=== PATIENT | female | born 1960 | race Caucasian/White ===

== ENCOUNTER 2016-11-13 13:57 | Inpatient (IN) | payer MEDICARE ==
--- NOTE | ~2016-11-13 | CR6 ---
[facility] A Service of [facility] & [facility] RADIOLOGY TEXT RESULTS PATIENT: SHEN WILLIAM LOCATION: [facility] 334-01 : 58 UNIT #: [id number] AGE: [address]: Sal Dye III, MD SEX: F ORDER DR: [id number] [id number] [facility]. [place], [place] [address] [id number] I MR#: [id number] Acc #: [id number] NAME: SHEN WILLIAM : 1960 SEX: F STUDY DATE/TIME: 11/15/2016 11:28 [facility]: [facility] STUDY DESCRIPTION: CR Abdomen Portable Sng View Attending Physician: Sal Dye III, M.D. Ordering Physician: Sal Dye III, M.D. Primary Care Physician: Mary Barrientos M.D. MEDICAL IMAGING REPORT This report is preliminary unless electronic signature is present EXAM AP of the abdomen. HISTORY 56-year-old female with abdominal pain this morning. COMPARISON STUDIES Comparison with yesterday. FINDINGS Overall there has been no real significant change in the dilated loops of small bowel. Previous vertebral augmentations. IMPRESSION No significant change in the dilated loops of small bowel. Dictated by... Rick Vasquez M.D. THIS IS AN ELECTRONICALLY VERIFIED REPORT Rick Vasquez M.D. at 11/15/2016 4:41 PM MERLINE/cherri TD: 11/15/2016 14:30 JOB #: [id number] MEDICAL IMAGING REPORT Page 1 of 1 COPY
--- NOTE | ~2016-11-13 | CR4 ---
[facility] A Service of [facility] RADIOLOGY TEXT RESULTS PATIENT: SHEN WILLIAM LOCATION: [facility] 334- : 58 UNIT #: [id number] AGE: [address]: Sal Dye III, MD SEX: F ORDER DR: [id number] [facility] [address] [facility]. [place], [place] [address] [id number] I MR#: [id number] Acc #: [id number] NAME: SHEN WILLIAM : 1960 SEX: F STUDY DATE/TIME: 11/18/2016 12:55 UNIT: A U ROOM: [facility] STUDY DESCRIPTION: CR Abdomen Flat Upright or Dec Attending Physician: Sal Dye III, M.D. Ordering Physician: Sal Dye III, M.D. Primary Care Physician: Mary Barrientos M.D. MEDICAL IMAGING REPORT This report is preliminary unless electronic signature is present EXAM Flat and upright abdomen HISTORY Abdominal pain nausea and vomiting for the past 5 days. TECHNIQUE Single view of the abdomen was obtained and compared to 11/15/2016 FINDINGS Ingested oral contrast is seen down to the rectum. The small bowel pattern is normal. Distended small bowel loops in the mid abdomen seen on the previous examination have improved. No free air is seen in the upright view. IMPRESSION Improvement in the small bowel distension since the previous examination. Ingested oral contrast is into the rectosigmoid. No evidence of free air. Dictated by... Brock Lara M.D. THIS IS AN ELECTRONICALLY VERIFIED REPORT Brock Lara M.D. at 11/18/2016 6:02 PM MARIONF/woo TD: 11/18/2016 15:02 JOB #: [id number] MEDICAL IMAGING REPORT Page 1 of 1 COPY
--- NOTE | ~2016-11-13 | CR4 ---
[facility] A Service of [facility] RADIOLOGY TEXT RESULTS PATIENT: SHEN WILLIAM LOCATION: [facility] 334-01 : 58 UNIT #: [id number] AGE: [address]: Sal Dye III, MD SEX: F ORDER DR: [id number] [facility] [address] [facility]. [place], [place] [address] [id number] I MR#: [id number] Acc #: [id number] NAME: SHEN WILLIAM : 1960 SEX: F STUDY DATE/TIME: 11/14/2016 13:22 UNIT: C2A ROOM: 226 STUDY DESCRIPTION: CR Abdomen Flat Upright or Dec Attending Physician: Sal Dye III, M.D. Ordering Physician: Sal Dye III, M.D. Primary Care Physician: Mary Barrientos M.D. MEDICAL IMAGING REPORT This report is preliminary unless electronic signature is present EXAM Abdomen flat and upright. HISTORY Abdomen pain for 5 days. FINDINGS Flat and upright views of the abdomen demonstrate dilatation of gas-filled small bowel in the abdomen and upper pelvis. The colon has apparently been resected, as noted on recent CT. The small bowel measures up to nearly 7 cm in diameter in the right upper quadrant, and 4.4 cm in the left lower quadrant. Findings suggest generalized ileus or distal small bowel obstruction. The degree of bowel dilatation is similar to CT yesterday. Chronic compression fractures and vertebral plasties at T12, L1 and L2. IMPRESSION Dilatation of small bowel throughout the abdomen and upper pelvis is similar to findings on CT yesterday. The patient is apparently status post colectomy and findings could be due to a small bowel ileus or distal small bowel obstruction. No free air. Chronic compression fractures and vertebral plasties at T12, L1 and L2. 1. Dictated by... Jerry Babb M.D. THIS IS AN ELECTRONICALLY VERIFIED REPORT Jerry Babb M.D. at 11/15/2016 3:02 PM CARLA/светлана TD: 11/15/2016 08:04 JOB #: [id number] [facility] A Service of [facility] RADIOLOGY TEXT RESULTS PATIENT: SHEN WILLIAM LOCATION: [facility] 334-01 : 58 UNIT #: [id number] AGE: [address]: Sal Dye III, MD SEX: F ORDER DR: MEDICAL IMAGING REPORT Page 1 of 1 COPY
--- NOTE | ~2016-11-13 | CO ---
Unit #: [id number] #: [id number] Patient: SHEN WILLIAM [id number] [address] [place], [place] [address] [id number] I MR#: [id number] NAME: SHEN WILLIAM ROOM: 226 Age: 55 Sex: F Admission Date: 11/13/2016 : 1960 Attending Physician: Sal Dye III, M.D. Primary Care Physician: Mary Barrientos M.D. CONSULTATION REPORT REASON FOR CONSULTATION Chronic pain and anxiety. HISTORY OF PRESENT ILLNESS The patient is a 55-year-old female with history of chronic pain and coronary artery disease and presented to the emergency room with abdominal pain. The patient was found to have a small-bowel obstruction and is being admitted to the Surgical Service and Medicine consult has been placed for the management of chronic pain and anxiety. The patient had reanastomosis and reversal of the ileostomy back in 2013 and the patient stated that the patient's last bowel movement was earlier at 3:30 in the morning and has not passed any gas. The patient was also found to have a hypokalemia with 2.6 and the patient is being admitted for the bowel rest and hypokalemia. PAST MEDICAL HISTORY History of depression, osteoporosis, chronic back pain, small-bowel obstruction, GERD, ventral hernia repair and revision. PAST SURGICAL HISTORY Cholecystectomy, kyphoplasty, cataract extraction, back surgery, hysterectomy. ALLERGIES She is allergic to morphine and nonsteroidal antiinflammatory drugs. HOME MEDICATIONS She is on Abilify, Elavil, aspirin, Coreg, Bentyl, Fosamax, Flonase, Florastor, Klonopin, Lasix as needed, Lexapro, methadone, and oxycodone. FAMILY HISTORY Positive for hypertension, diabetes. SOCIAL HISTORY The patient lives with her family. She smokes 2 packs per day of tobacco and does not drink alcohol. REVIEW OF SYSTEMS 14-point review of systems was performed and only pertinent positive findings are described. Remaining are negative. PHYSICAL EXAMINATION GENERAL: The patient is lying on bed, not in acute distress. Unit #: [id number] #: [id number] Patient: SHEN WILLIAM VITAL SIGNS: Temperature 97, pulse 79, respiratory rate 36, blood pressure 156/81, saturating 95% on room air. HEENT: Head, atraumatic, normocephalic. Pupils are equal, round, and reactive to light and accommodation. Dry mucous membrane. NECK: Supple. No JVD. LUNGS: Clear to auscultation bilaterally. No rhonchi. No wheezing. HEART: Regular rate and rhythm. ABDOMEN: Soft. Positive bowel sounds. Positive for abdominal pain. Old healed surgical scar. EXTREMITIES: No cyanosis. No clubbing. NEUROLOGIC: Alert, awake, and oriented. No gross focal motor deficits. DIAGNOSTIC STUDIES LABORATORY RESULTS: Glucose 128, BUN 13, creatinine 0.8, sodium 139, potassium 2.6, chloride 98, bicarb 31, calcium 8.6, total protein 7.2, albumin 3.3, total bilirubin 0.9, AST 27, ALT 14, alkaline phosphatase 70, amylase 10, lipase less than 10. WBC 7.8, hemoglobin 12.2, hematocrit 36.9, platelets 206, neutrophils 73.6%. UA shows trace leukocyte esterase and urobilinogen 0.2. IMAGING STUDIES: CT of the abdomen shows small-bowel obstruction. ASSESSMENT 1. Small-bowel obstruction. 2. Hypokalemia. 3. Chronic pain. 4. Compression fracture. PLAN To continue with surgical management with bowel rest and IV fluids and continue with pain medication with Dilaudid, did well, the patient has been n.p.o. and replace with potassium per protocol and further recommendations will follow as more lab results are available. Dictated by... Segundo Michaels/stefan TD: 11/13/2016 23:34 JOB #: [id number] CONSULTATION REPORT Page 1 of 1 X X CONSULTATION REPORT
--- NOTE | ~2016-11-13 | CR63 ---
[facility] A Service of [facility] & [facility] RADIOLOGY TEXT RESULTS PATIENT: SHEN WILLIAM LOCATION: [facility] 334-01 : 58 UNIT #: [id number] AGE: [address]: Sal Dye III, MD SEX: F ORDER DR: [id number] [facility] [address] [facility]. [place], [place] [address] [id number] I MR#: [id number] Acc #: [id number] NAME: SHEN WILLIAM : 1960 SEX: F STUDY DATE/TIME: 11/14/2016 13:22 UNIT: C2A ROOM: 226 STUDY DESCRIPTION: CR Chest 2 View Attending Physician: Sal Dye III, M.D. Ordering Physician: Arabella Munoz M.D. Primary Care Physician: Mary Barrientos M.D. MEDICAL IMAGING REPORT This report is preliminary unless electronic signature is present EXAM PA and lateral chest HISTORY Weakness and dyspnea for 5 days. FINDINGS 2 views of the chest demonstrate moderate chronic anterior elevation of the right hemidiaphragm with colonic interposition over the anterior margin of the liver, similar to chest x-ray 06/12/2015. Lower lung volumes on the current study. There is a new moderate bibasilar linear atelectasis or scarring and small amount of fluid or pleural thickening in both bases. Moderate thoracolumbar junction kyphosis with multiple chronic compression fractures of lower thoracic and upper lumbar vertebra and associated vertebroplasties. IMPRESSION 1. No evidence of active disease in the lungs. 2. Moderate bibasilar linear atelectasis or scarring. 3. Small amount of fluid or pleural thickening in both bases. 4. Low lung volumes with moderate elevation of the anterior right hemidiaphragm. Dictated by... Jerry Babb M.D. THIS IS AN ELECTRONICALLY VERIFIED REPORT Jerry Babb M.D. at 11/15/2016 3:01 PM CARLA/светлана TD: 11/15/2016 07:44 JOB #: [id number] [facility] A Service of [facility] & [facility] RADIOLOGY TEXT RESULTS PATIENT: SHEN WILLIAM LOCATION: A 334-01 : 58 UNIT #: [id number] AGE: [address]: Sal Dye III, MD SEX: F ORDER DR: MEDICAL IMAGING REPORT Page 1 of 1 COPY
--- NOTE | ~2016-11-13 | CR269 ---
[facility] A Service of [facility] & [facility] RADIOLOGY TEXT RESULTS PATIENT: SHEN WILLIAM LOCATION: [facility] 334-01 : 58 UNIT #: [id number] AGE: [address]: Sal Dye III, MD SEX: F ORDER DR: [id number] [id number] [facility]. [place], [place] [address] [id number] I MR#: [id number] Acc #: [id number] NAME: SHEN WILLIAM : 1960 SEX: F STUDY DATE/TIME: 11/16/2016 14:21 UNIT: C3A PCU ROOM: [facility] STUDY DESCRIPTION: CR Upper GI and SBFT Attending Physician: Sal Dye III, M.D. Ordering Physician: Noble Jensen Jr., M.D. Primary Care Physician: Mary Barrientos M.D. MEDICAL IMAGING REPORT This report is preliminary unless electronic signature is present EXAM Upper GI and small bowel follow-through INDICATIONS Generalized abdominal pain for the past 4 days. Concern for small bowel obstruction. Patient has a history of partial colectomy 1978. PROCEDURE Barium contrast was administered via the patient's NG tube. Spot images of the stomach were obtained. Serial abdominal radiographs were obtained. Comparison CT from 11/13/2016 FINDINGS A total of 7 fluoroscopic images were obtained. Fluoro time 1.2 minutes. Limited evaluation of the stomach given patient mobility issues. No definite rugal fold thickening or mass is seen. Small bowel loops are diffusely prominent. There is a fairly long segment of small bowel in the mid to lower abdomen which shows significant fold thickening. This appearance, persists on multiple images. There is slow transit of contrast through the small bowel. At the 5-hour and 40-minute leodan contrast has still not progressed throughout the entire small bowel. A followup abdominal radiograph at 21 hours and 30 minutes shows contrast in the rectum. IMPRESSION 1. Study was difficult given mobility issues and presence of a NG tube. No definite abnormality in the stomach. 2. Diffuse prominence of the small bowel with slow transit of contrast throughout the small bowel. There is no evidence for high-grade obstruction as contrast is seen in the rectum at 21 hours and 30 minutes. [facility] A Service of [facility] & [facility] RADIOLOGY TEXT RESULTS PATIENT: SHEN WILLIAM LOCATION: [facility] 334-01 : 58 UNIT #: [id number] AGE: [address]: Sal Dye III, MD SEX: F ORDER DR: 3. Abnormal segment of bowel in the gyc-ul-gdlsb abdomen shows significant wall thickening. This is a nonspecific finding. It could represent bowel edema, inflammatory change or infiltrative process. This segment is not clearly seen on the CT. Dictated by... Bob Singleton M.D. THIS IS AN ELECTRONICALLY VERIFIED REPORT Bob Singleton M.D. at 11/19/2016 4:51 PM Yeyo TD: 11/17/2016 10:32 JOB #: [id number] MEDICAL IMAGING REPORT Page 1 of 1 COPY
--- NOTE | ~2016-11-13 | MR113 ---
[facility] A Service of [facility] & [facility] RADIOLOGY TEXT RESULTS PATIENT: SHEN WILLIAM LOCATION: C2[facility] 226-01 : 58 UNIT #: [id number] AGE: [address]: Sal Dye III, MD SEX: F ORDER DR: [id number] [facility] [address] [facility]. [place], [place] [address] [id number] I MR#: [id number] Acc #: [id number] NAME: SHEN WILLIAM : 1960 SEX: F STUDY DATE/TIME: 11/14/2016 15:04 UNIT: [facility] ROOM: 226 STUDY DESCRIPTION: MR Lumbar Wo Contrast Attending Physician: Sal Dye III, M.D. Ordering Physician: Arabella Munoz M.D. Primary Care Physician: Mary Barrientos M.D. MRI CENTER REPORT This report is preliminary unless electronic signature is present. EXAM MRI of the lumbar spine without contrast HISTORY Low back injury 4 weeks ago. Severe back pain. Evaluate for compression fracture. COMPARISON CT abdomen and pelvis 11/13/2016. FINDINGS Multiplanar, multiecho imaging was performed of the lumbar spine utilizing a high-field magnet and dedicated protocol. Examination demonstrates mild accentuation of the kyphosis at the thoracolumbar junction. This is most likely accentuated due to the patient's multiple thoracic compression fractures T12, L1 and L2. The patient has undergone previous kyphoplasty at these levels. There is diffuse marrow edema throughout the L5 vertebral body compatible with an acute or subacute compression fracture. There is estimated approximately 20% loss of the superior vertebral body height. No retropulsed fragment. Normal termination of the conus. Prominent Schmorl's node or interosseous disc herniation seen along the inferior aspect of the L4 vertebral body. At L3-4, patient does demonstrate moderate central canal stenosis and bilateral foraminal stenosis due to circumferential disc bulging and facet arthropathy. Bilateral foraminal stenosis also noted at L4-5 left greater than right. At L5-S1, there is left L5-S1 neural foraminal narrowing due to asymmetric disc bulge. IMPRESSION 1. Marrow edema within the L5 vertebral body which would support an acute or subacute compression fracture of L5 with no more than 20% loss of the [facility] A Service of [facility] RADIOLOGY TEXT RESULTS PATIENT: SHEN WILLIAM LOCATION: C2A 226-01 : 58 UNIT #: [id number] AGE: [address]: Sal Dye III, MD SEX: F ORDER DR: superior vertebral body height. No retropulsed fragment. 2. Status post kyphoplasty T12, L1 and L2 with accentuation of the thoracic kyphosis at this level. 3. Multilevel spinal and foraminal stenosis as detailed above. Dictated by... Dayami Vasquez M.D. THIS IS AN ELECTRONICALLY VERIFIED REPORT Dayami Vasquez M.D. at 11/15/2016 10:05 AM SALVATORE/rajinder TD: 11/15/2016 08:47 JOB #: [id number] MRI CENTER REPORT Page 1 of 1 COPY
--- NOTE | ~2016-11-13 | CT2 ---
[facility] A Service of [facility] & [facility] RADIOLOGY TEXT RESULTS PATIENT: SHEN WILLIAM LOCATION: [facility] 226-01 : 59 UNIT #: [id number] AGE: [address]: Sal Dye III, MD SEX: F ORDER DR: [id number] [facility] [address] [facility]. [place], [place] [address] [id number] I MR#: [id number] Acc #: [id number] NAME: SHEN WILLIAM : 1960 SEX: F STUDY DATE/TIME: 11/13/2016 16:28 UNIT: CEDOF ROOM: 96797 STUDY DESCRIPTION: CT Abd and Pelv W Cont Attending Physician: Sal Dye III, M.D. Ordering Physician: Ed Dino Wetzel M.D. Primary Care Physician: Mary Barrientos M.D. MEDICAL IMAGING REPORT This report is preliminary unless electronic signature is present EXAM CT abdomen and pelvis with contrast. HISTORY Umbilical area abdominal pain since this morning. History of Crohn disease. The patient has had a subtotal colectomy, ileostomy, hysterectomy, appendectomy, and a left oophorectomy and cholecystectomy. COMPARISON CT abdomen and pelvis, 12/10/2015. TECHNIQUE Axial images performed through the abdomen and pelvis following IV and oral contrast. Multiplanar reconstructed images reviewed at a workstation. This CT exam was performed with one or more of the following radiation dose reduction techniques: automatic exposure control, adjustment of mA and/or kV according to patient size, and iterative reconstruction. FINDINGS ABDOMEN: Lung bases unremarkable except for left basilar atelectasis and possible early pneumonitis. Liver and spleen unremarkable. Trace amount of ascites. Multiple dilated loops of small bowel concerning for developing small bowel obstruction with multifocal air-fluid levels. Patient has undergone a subtotal colectomy. No focal inflammatory process seen within the abdomen. Liver, spleen, kidneys, and adrenal glands are unremarkable. Pancreatic atrophy. Mild aortic and iliac atherosclerotic disease. PELVIS: Bladder is mildly distended. Uterus absent. Multiple thoracic and lumbar compression fractures. There is an apparent new L5 compression fracture with about 20% loss of the superior endplate height and diffuse sclerosis. This is new from the November 2015 CT scan. [facility] A Service of [facility] RADIOLOGY TEXT RESULTS PATIENT: SHEN WILLIAM LOCATION: C2A 226-01 : 58 UNIT #: [id number] AGE: [address]: Sal Dye III, MD SEX: F ORDER DR: Focal defect and bulge in the left lower abdominal wall, most likely related to multiple surgeries. Induration of the overlying soft tissues may represent areas of fat necrosis or chronic inflammation. This does not appear significantly changed from prior studies. No focal incarceration of bowel is identified to suggest cause for the patient's possible obstruction. IMPRESSION 1. Abnormal bowel gas pattern with multiple dilated loops of small bowel with multiple air-fluid levels. This appears to represent a proximal to mid small bowel obstruction, possibly on the basis of adhesions given the patient's numerous surgeries. 2. Patchy parenchymal opacity left lung base, probably represents subsegmental atelectasis though early infiltrate not excluded. 3. Patient demonstrates multiple thoracic and lumbar compression fractures but there is a new superior endplate compression fracture of L5 which is new when compared to the patient's CT scan of November 2015. 4. Not mentioned above, the patient does demonstrate moderate to severe spinal stenosis at L3-4. 5. Continued defect along the left lower anterior abdominal wall, most likely related to the patient's multiple surgeries. This does not appear significantly changed from patient's prior exams and does not appear to represent a site or source of the patient's obstruction as there is no focal incarceration. Dictated by... Dayami Vasquez M.D. THIS IS AN ELECTRONICALLY VERIFIED REPORT Dayami Vasquez M.D. at 11/14/2016 10:52 PM SALVATORE/cherri TD: 11/14/2016 07:51 JOB #: [id number] MEDICAL IMAGING REPORT Page 1 of 1 COPY
--- NOTE | ~2016-11-13 | DS ---
Unit #: [id number] #: [id number] Patient: SHEN BARR [id number] [address] [place], [place] [address] [id number] I MR#: [id number] NAME: SHEN BARR ROOM: 334 Age: 56 Sex: F Admission Date: 11/13/2016 : 1960 Discharge Date: Attending Physician: Sal Dye III, M.D. Primary Care Physician: Mary Barrientos M.D. DISCHARGE SUMMARY HISTORY AND HOSPITAL COURSE Ms. Barr is a 55-year-old female with history of chronic pain syndrome from the spinal issues, who has also had multiple abdominal surgeries. She presented to the emergency room with complaints of bloating and diffuse abdominal pain. Initial x-rays were concerning for partial small bowel obstruction. She was admitted to the hospital and her electrolytes were corrected and she was hydrated and treated conservatively. A small bowel follow-through showed no obstruction but very slow transit. She was also seen by the [facility] service because of other medical issues. An MRI of the lumbar spine was ordered. There was question of an acute or subacute compression fracture. She has had previous kyphoplasties at T12, L1, and L2, and this compression fracture is thought to be at L5. Slowly, she regained bowel function and was able to be advanced on a diet. I believe she probably has some slow transit as result of her chronic pain medications and she may have an exacerbation due to her acute or subacute compression fracture. However on evaluation, there was no acute intervention for the compression fractures was needed. She is to follow up with her pain management people. At this time, her medications for her anxiety were altered by [facility] and we will continue those at home. She is tolerating a regular diet and having regular bowel function at this time and her abdomen is benign to exam. She will be discharged home with instruction to go diet and activity as tolerated. Continue the medications per the reconciliation sheet. Followup with pain management. Dictated by... Segundo Montejo/stefan TD: 11/20/2016 07:27 JOB #: [id number] DISCHARGE SUMMARY Page 1 of 1 X Brock Barriga MD DISCHARGE SUMMARY
--- NOTE | ~2016-11-13 | A ---
[facility] Nutrition Therapy DATE: 11/18/16 Patient: SHEN WILLIAM Physician: ÁNGELA Address: [address] [facility] Room/Bed: [address] [place] [address], Zip: [place] [address] Admit Date: 11/13/16 Date of : 58 Height: 5 5 Weight: 184 83.8 NUTRITIONAL ASSESSMENT: REASON: NPO/ clear liquid diet x 5 days 55 yo female admitted for abdominal pain, partial SBO PMH: History of bowel obstruction with exploratory laparatomy, depression, chronic back pain, GERD, hypothyroid, ileostomy, ileostomy s/p ileostomy reversal, hernia repair, cholecystectomy, osteoporosis Anthropometrics: Ht: 65" Wt: 85.6 kg BMI: 31.4 Labs: Na+ 131 BUN <5 Ca++ 7.6 Accuchecks 81-114 Meds: Protonix, synthroid, furosemide, levaquin (IV), novolog, zofran, MgSO4, KCl I/O & Bowel function: 4065/10, last BM 11/18 Skin Integrity: Open wounds mid back/ right upper back Rash to back Scabbed area- right upper back/ LLE Edema: None noted Diet: Clear liquid Assessment: Chart reviewed, events noted. RD spoke with the pt at bedside. Pt reports that her last intake of solid food was last Tuesday evening the , which indicates 6 days without adequate nutrient intake. Pt has been either NPO or on clear liquids since admission due to partial SBO. Pt's NGT has been removed, and the pt denies having any n/v at this time. Pt is reportedly tolerate clear liquids, and is agreeable to Ensure clear TID. Pt denies having any weight loss recently, besides any she may have had since Tuesday. Please see recommendations below. Dx: Inadequate oral intake RT partial SBO AEB pt NPO or on clear liquid diet since admission, pt reports no intake of solid food for 6 days. Intervention: 1. Clear liquid diet 2. Advance diet as tolerated per MD orders Monitoring, Evaluation and Goals: 1. Oral intake; tolerate >50-75% of meals and supplements [facility] Nutrition Therapy DATE: 11/18/16 Patient: SHEN WILLIAM Physician: ÁNGELA Address: [address] [facility] Room/Bed: [address] [place] [address], Zip: [place] [address] Admit Date: 11/13/16 Date of : 58 Height: 5 5 Weight: 184 83.8 2. Labs; WNL 3. Weight; prevent unintentional weight loss 4. Skin; promote healing. 5. GI; promote regular GI function Recommendations: 1. Ensure clear (mixed conte) TID for supplemental nutrition while the pt remains on a clear liquid diet. 2. Once medically feasible, advance the pt to a low fiber diet as tolerated per surgical team discretion. Gradually add fiberous foods back into the diet as tolerated. 3. Appreciate staff encouraging adequate intake as needed. 4. If the pt's diet does not advance, may consider alternative nutrition support. RD to follow. Pt is at moderate nutritional risk. Respectfully, SIVAKUMAR RODRIGUEZ RD, LD [facility] Psychiatric cc: client file
--- NOTE | ~2016-11-13 | CR72 ---
[facility] A Service of [facility] RADIOLOGY TEXT RESULTS PATIENT: HSEN WILLIAM LOCATION: [facility] [id number] : 58 UNIT #: [id number] AGE: [address]: Sal Dye III, MD SEX: F ORDER DR: [id number] [place], [place] [address] [id number] MR#: [id number] Acc #: [id number] NAME: SHEN WILLIAM : 1960 SEX: F STUDY DATE/TIME: 11/15/2016 11:26 UNIT: [address] ROOM: [facility] STUDY DESCRIPTION: CR Chest Single View Portable Attending Physician: Sal Dye III, M.D. Ordering Physician: Sal Dye III, M.D. Primary Care Physician: Mary Barrientos M.D. MEDICAL IMAGING REPORT This report is preliminary unless electronic signature is present EXAM Portable chest INDICATION 56-year-old female with shortness of breath since this morning. COMPARISON Yesterday FINDINGS Low volume inspiration. Stable atelectasis left base. No new infiltrates. Heart size stable. IMPRESSION No significant change in the appearance of the chest. Dictated by... Rick Vasquez M.D. THIS IS AN ELECTRONICALLY VERIFIED REPORT Rick Vasquez M.D. at 11/15/2016 4:41 PM MERLINE/aurelio TD: 11/15/2016 14:08 JOB #: [id number] MEDICAL IMAGING REPORT Page 1 of 1 COPY
--- NOTE | ~2016-11-13 | HP ---
Unit #: [id number] #: [id number] Patient: SHEN WILLIAM [id number] [address] [place], [place] [address] [id number] MR#: [id number] NAME: SHEN WILLIAM ROOM: 226 Age: 55 Sex: F Admission Date: 11/13/2016 : 1960 Attending Physician: Sal Dye III, M.D. Primary Care Physician: Mary Barrientos M.D. HISTORY AND PHYSICAL DATE OF EVALUATION 11/14/2016 CHIEF COMPLAINT Partial small bowel obstruction. HISTORY OF PRESENT ILLNESS This is a 55-year-old lady who has had a 24-hour history of diffuse abdominal pain, some bloating, and she reports that her last bowel movement was at 3:30 yesterday morning. She normally has multiple bowel movements throughout the day. She denies any flatus over the last 24 hours. She does say that she feels better this morning. She denies any ill contacts or any episodes of food poisoning. She has had similar episodes of bowel obstructions in the past. She reports that this one is not nearly as severe as the last one that required an exploratory laparotomy. PAST MEDICAL HISTORY Significant for: 1. Depression. 2. Chronic pain due to back pain and radiculopathy. 3. She also has a history of a myocardial infarction after an exploratory laparotomy. 4. Elevated cholesterol level. 5. History of reflux. 6. Hypothyroidism. PAST SURGICAL HISTORY She has had exploratory laparotomy, ileostomy for unknown reason. She then had to have reversal of the ileostomy. She has also had diagnostic laparoscopy at this institution. She has also undergone prior complex ventral hernia repairs with removal of mesh. She has also had an open cholecystectomy and some gynecological procedures. Additionally in terms of her back, she has had a diskectomy as well as a kyphoplasty. ALLERGIES Morphine and non-steroidals. Please see medication reconciliation list for the medications. SOCIAL HISTORY She does smoke. She denies any alcohol use. Unit #: [id number] #: [id number] Patient: SHEN WILLIAM FAMILY HISTORY Negative for any abdominal cancers. REVIEW OF SYSTEMS Negative for GI bleed, and she has had no weight loss and no fevers, and is otherwise as above. PHYSICAL EXAMINATION VITAL SIGNS: Temperature is 97, heart rate is 79, respiratory rate was 36 on admission but she is now breathing comfortably, blood pressure is 156/81. GENERAL: She is in no acute distress. HEENT EXAM: Pupils are equal and reactive to light and accommodation. Extraocular muscles are intact. NECK: Without masses or bruits. LUNGS: Equal breath sounds bilaterally with equal air exchange. CARDIAC EXAM: Shows regular rate and rhythm without murmur. ABDOMEN: Soft, non-distended and there is no focal tenderness at this point although she reports that she just had a pain shot. She has multiple scars but there is no appreciable hernias or masses. EXTREMITIES: Without edema or cyanosis. NEUROLOGIC EXAM: She is alert and oriented. There is no focal deficits. DIAGNOSTIC STUDIES LABORATORY: Potassium is 2.6, white count 7.8, hemoglobin is 12.2. IMAGING: CT scan, voice clip, shows dilated small bowel loops with air gas levels but no transition point. OVERALL IMPRESSION This is a 55-year-old lady, who has a partial small bowel obstruction likely secondary to adhesions. She seems to be clinically improving with nonoperative management with IV fluids, we will repeat an interval plain films later today to make sure that the bowel gas pattern is improving. At this point I will hold off on NG tube since she is not having any nausea or vomiting. Additionally, she has hypokalemia and she is on a potassium protocol. I have asked the hospitalist to see the patient to manage her chronic pain and anxiety. Dictated by Sal Dye III, M.D. VCL/kelvin TD: 11/14/2016 15:12 JOB #: [id number] HISTORY AND PHYSICAL Page 1 of 1 X Sal Dye III, MD HISTORY AND PHYSICAL
--- NOTE | ~2016-11-13 | EKG ---
PATIENT: SHEN WILLIAM UNIT #: [id number] Ventricular Rate: 88 BPM Atrial Rate: 88 BPM P-R Interval: 150 ms QRS Duration: 78 ms Q-T Interval: 402 ms QTC Calculation(Bezet): 486 ms P [place]: 42 degrees Calculated R [place]: -20 degrees Calculated T [place]: 13 degrees Diagnosis Line: Normal sinus rhythm Diagnosis Line: Low voltage QRS Diagnosis Line: Inferior infarct , age undetermined Diagnosis Line: Poor R wave progression questionable lead position Diagnosis Line: or body habitus Diagnosis Line: Abnormal ECG Diagnosis Line: When compared with ECG of 20-FEB-2016 11:32, Diagnosis Line: No significant change was found Diagnosis Line: Confirmed by KRISHNA PARKER MD ([id number]) on 11/15/2016 Diagnosis Line: 11:04:42 PM INTERPRETING MD: KEITH PHILIPPE
--- NOTE | ~2016-11-13 | CO ---
Unit #: [id number] #: [id number] Patient: SHEN WILLIAM [id number] [address] [address] [id number] MR#: [id number] NAME: SHEN WILLIAM ROOM: 226 Age: 56 Sex: F Admission Date: 11/13/2016 : 1960 Attending Physician: Sal Dye III, M.D. Primary Care Physician: Mary Barrientos M.D. Consultation Date: 11/15/2016 CONSULTATION REPORT REQUESTING PHYSICIAN Dr. Munoz. HISTORY OF PRESENT ILLNESS The patient does not recount injuring her back. She does have osteoporosis and has had kyphoplasties in the past. She is admitted with a small bowel obstruction and is due for surgery today. PAST MEDICAL HISTORY As per chart. She suffers with depression. MEDICATIONS 1. Synthroid. 2. Levothyroxine. 3. Furosemide. 4. Pantoprazole. 5. Potassium. 6. Tizanidine. ALLERGIES Morphine. PAST SURGICAL HISTORY 1. Microdiskectomy. 2. Kyphoplasty. 3. Lumbar diskectomy. 4. Cholecystectomy. FAMILY HISTORY Noncontributory. REVIEW OF SYSTEMS A 14-point review of systems is otherwise negative. DIAGNOSTIC STUDIES IMAGING: MRI reveals changes consistent with T12, L1, and L2 kyphoplasties and what appears to be degenerative disk disease throughout the lumbar spine and acute to subacute fracture of L5. CLINICAL IMPRESSION L5 compression fracture. RECOMMENDATIONS The patient has a small bowel obstruction and is due for surgery today. Unit #: [id number] #: [id number] Patient: SHEN WILLIAM This obviates kyphoplasty as the patient would need to be placed prone. That is unrealistic within the next several weeks. During which time, the L5 compression fracture would be expected to heal without incident. Thank you for asking me to see this patient. Dictated by... Ross Booker M.D. ROSALES/mikayla TD: 11/15/2016 12:45 JOB #: [id number] CONSULTATION REPORT Page 1 of 1 X Ross Booker MD X CONSULTATION REPORT
[~2016-11-13 13:57] MED LIST: ABILIFY10 MG; ABILIFY10 MG PO; ACTONEL PO; ADVIL200 M3 PO; ALLEGRA-D1 TAB 60/1; AMITRIPTYLINE H50 MG PO; AMITRYPTYLINE PO; ASPIRIN EC81 M1 PO; BACTRIM 400-801 TA1 PO; BENTYL10 M1 PO; BENTYL10 MG PO; COREG PO; COREG3.125 M1 PO; COREG3.125 MG PO; FINACEA PLUS K1 EACH; FLONASE 0.05% N16 G1; FLONASE16 GM; FLORASTOR250 M1 PO; FOSAMAX40 MG PO; HCTZ PO; HYDROCHLOROTHIA25 MG PO; K-DUR10 MEQ PO; KLONOPIN PO; KLONOPIN1 MG PO; LASIX20 MG PO; LEXAPRO PO; LEXAPRO20 MG PO; LIDODERM PATCH; LIDODERM30 EA; LIPITOR80 MG; LOPERAMIDE HCL2 M1 PO; LORTAB 7.5-5001 TAB PO; LOVAZA1 G; LUNESTA PO; METHADONE PO; METHADOSE10 MG PO; NEURONTIN300 MG PO; OXYCODONE HCL20 M1 PO; OXYCODONE HCL30 MG PO; OXYCODONE15 M1 PO; PHENERGAN PO; PHENTERMINE H37.5 M1 PO; PREVALITE; PROBIOTIC1 EAC1 PO; PROTONIX PO; PROTONIX20 MG PO; TOPAMAX50 MG PO; TOPIRAMATE100 MG PO; VITAMIN C PO; VITAMIN D 4001 UDTAB PO; VITAMIN D250000 UNIT PO; VITAMIN D50000 UNIT PO; ZANAFLEX4 M1 PO; ZESTRIL5 MG PO; ZYRTEC-D T1 TAB.SR . PO
[2016-11-13 14:56] LABS: BASOPHIL% 0.3 % (0-2.5); EOSINOPHIL# 0.1 X10e3 (0-0.7); EOSINOPHIL% 0.7 % (0.0-7.0); HEMATOCRIT 36.9 % (35.0-45.0); HEMOGLOBIN 12.2 gm/dL (12.0-16.0); LYMPHOCYTE# 0.8 X10e3 (1.0-3.5); LYMPHOCYTE% 9.7 % (17.0-45.0); MEAN CELL VOLUME 85.6 FL (83-96); MEAN CORPUSCULAR HEMOGLOBIN 28.4 PG (28-34); MEAN CORPUSCULAR HGB CONC 33.2 g/dL (30-36); MEAN PLATELET VOLUME 10.2 FL (6.5-11.5); MONOCYTE# 0.4 X10e3 (0-1.0); MONOCYTE% 5.7 % (3.0-12.0); NEUTROPHIL# 6.6 X10e3 (1.5-7.1); NEUTROPHIL% 83.6 % (40-75); PLATELET COUNT 206 X10e3 (140-420); RED BLOOD COUNT 4.31 X10e (3.90-5.30); RED CELL DISTRIBUTION WIDTH 14.8 % (11.0-15.5); WHITE BLOOD COUNT 7.8 X10e3 (4.0-10.5)
[2016-11-13 15:00] LABS: DIFF IND NO
[2016-11-13 15:26] LABS: ALBUMIN SERUM 3.3 g/dL (3.5-5.0); ALKALINE PHOSPHATASE 70 U/L (32-92); ALT (SGPT) 14 U/L (10-40); AMYLASE 10 U/L (0-46); AST (SGOT) 27 U/L (10-42); BILIRUBIN, DIRECT 0.1 mg/dL (0.0-0.2); BILIRUBIN,INDIRECT 0.8 mg/dL (0.0-0.9); BILIRUBIN,TOTAL 0.9 mg/dL (0.2-2.0); BLOOD UREA NITROGEN 13 mg/dL (9-23); BUN/CREATININE RATIO 16.25; CALCIUM SERUM 8.6 mg/dL (8.4-10.2); CARBON DIOXIDE 31 mmol/L (22-31); CHLORIDE 98 mmol/L (100-111); CREATININE SERUM 0.8 mg/dL (0.6-1.4); GLOM FILT RATE Estimated 82.5 mL/min (>60); GLUCOSE FASTING 128 mg/dL (70-110); PROTEIN TOTAL SERUM 7.2 g/dL (6.0-8.3); SODIUM 139 mmol/L (135-145)
[2016-11-13 15:32] LABS: LIPASE <10 U/L (22-51); POTASSIUM 2.6 mmol/L (3.5-5.1)
[2016-11-13 18:37] LABS: URINE SOURCE CLEAN CATCH
[2016-11-13 19:08] LABS: URINE APPEARANCE CLEAR; URINE BILIRUBIN NEG (NEG); URINE BLOOD NEG (NEG); URINE COLOR YELLOW; URINE GLUCOSE NEG (NEG); URINE KETONE TRACE (NEG); URINE LEUKOCYTE ESTERASE TRACE (NEG); URINE NITRATE NEG (NEG); URINE PROTEIN NEG (NEG); URINE SPECIFIC GRAVITY 1.032 (1.003-1.035); URINE UROBILINOGEN 0.2 MG/DL (NEG)
[2016-11-13 19:12] LABS: URBCS1 AUWI 0-2 /[HPF] (0-2); URINE BACTERIA AUWI NEG (NEGATIVE); URINE SQUAMOUS EPITHELIAL CELL OCC /[HPF]
[2016-11-13 19:22] LABS: CULTURE INDICATED? NO
[2016-11-14 19:20] LABS: BASOPHIL% 0.4 % (0-2.5); EOSINOPHIL# 0.1 X10e3 (0-0.7); EOSINOPHIL% 1.4 % (0.0-7.0); HEMATOCRIT 35.5 % (35.0-45.0); HEMOGLOBIN 11.3 gm/dL (12.0-16.0); LYMPHOCYTE# 1.8 X10e3 (1.0-3.5); LYMPHOCYTE% 23.1 % (17.0-45.0); MEAN CORPUSCULAR HEMOGLOBIN 28.3 PG (28-34); MEAN CORPUSCULAR HGB CONC 31.8 g/dL (30-36); MEAN PLATELET VOLUME 9.5 FL (6.5-11.5); MONOCYTE# 0.8 X10e3 (0-1.0); MONOCYTE% 9.9 % (3.0-12.0); NEUTROPHIL# 4.9 X10e3 (1.5-7.1); NEUTROPHIL% 65.2 % (40-75); PLATELET COUNT 177 X10e3 (140-420); RED BLOOD COUNT 3.98 X10e (3.90-5.30); RED CELL DISTRIBUTION WIDTH 14.9 % (11.0-15.5); WHITE BLOOD COUNT 7.6 X10e3 (4.0-10.5)
[2016-11-14 19:23] LABS: DIFF IND NO
[2016-11-14 19:44] LABS: BUN/CREATININE RATIO 7.14; CALCIUM SERUM 7.9 mg/dL (8.4-10.2); CREATININE SERUM 0.7 mg/dL (0.6-1.4); GLOM FILT RATE Estimated 96.9 mL/min (>60); POTASSIUM 3.6 mmol/L (3.5-5.1)
[2016-11-15 05:20] LABS: HEMATOCRIT 34.7 % (35.0-45.0); HEMOGLOBIN 11.4 gm/dL (12.0-16.0); MEAN CELL VOLUME 86.5 FL (83-96); MEAN CORPUSCULAR HEMOGLOBIN 28.5 PG (28-34); MEAN CORPUSCULAR HGB CONC 32.9 g/dL (30-36); MEAN PLATELET VOLUME 9.5 FL (6.5-11.5); RED BLOOD COUNT 4.01 X10e (3.90-5.30); RED CELL DISTRIBUTION WIDTH 14.9 % (11.0-15.5); WHITE BLOOD COUNT 7.1 X10e3 (4.0-10.5)
[2016-11-15 06:13] LABS: ALBUMIN SERUM 2.7 g/dL (3.5-5.0); ALKALINE PHOSPHATASE 59 U/L (32-92); ALT (SGPT) 10 U/L (10-40); AST (SGOT) 19 U/L (10-42); BILIRUBIN,TOTAL 0.4 mg/dL (0.2-2.0); CARBON DIOXIDE 28 mmol/L (22-31); CHLORIDE 98 mmol/L (100-111); CREATININE SERUM 0.6 mg/dL (0.6-1.4); GLOM FILT RATE Estimated 101.2 mL/min (>60); GLUCOSE FASTING 98 mg/dL (70-110); MAGNESIUM 1.2 mg/dL (1.6-3.0); POTASSIUM 3.5 mmol/L (3.5-5.1); PROTEIN TOTAL SERUM 5.6 g/dL (6.0-8.3); SODIUM 132 mmol/L (135-145)
[2016-11-15 06:14] LABS: BLOOD UREA NITROGEN <5 mg/dL (9-23); BUN/CREATININE RATIO 8.33
[2016-11-15 10:24] LABS: ARTERIAL BLD GAS O2 SATURATION 92.2 % (90.0-100.0); ARTERIAL BLOOD GAS ALLEN TEST NORMAL; ARTERIAL BLOOD GAS ART SITE RIGHT RADIAL; ARTERIAL BLOOD GAS CARBOXY HB 1.1 %sat (0.0-9.0); ARTERIAL BLOOD GAS DELIVERY NASAL CANNULA; ARTERIAL BLOOD GAS HCO3 28.2 mmol/L; ARTERIAL BLOOD GAS MET HB 0.4 %sat (0.0-2.0); ARTERIAL BLOOD GAS PCO2 29.3 mmHg (35.0-45.0); ARTERIAL BLOOD GAS PO2 56.6 mmHg (80.0-100); ARTERIAL BLOOD GAS pH 7.591 (7.350-7.450); ARTERIAL DRAW? YES
[2016-11-15 11:49] LABS: HEMATOCRIT 39.2 % (35.0-45.0); HEMOGLOBIN 12.9 gm/dL (12.0-16.0); MEAN CELL VOLUME 86.2 FL (83-96); MEAN CORPUSCULAR HEMOGLOBIN 28.4 PG (28-34); MEAN CORPUSCULAR HGB CONC 32.9 g/dL (30-36); MEAN PLATELET VOLUME 9.8 FL (6.5-11.5); RED BLOOD COUNT 4.55 X10e (3.90-5.30); RED CELL DISTRIBUTION WIDTH 14.5 % (11.0-15.5); WHITE BLOOD COUNT 10.1 X10e3 (4.0-10.5)
[2016-11-15 12:17] LABS: ALBUMIN SERUM 2.8 g/dL (3.5-5.0); ALKALINE PHOSPHATASE 58 U/L (32-92); ALT (SGPT) 10 U/L (10-40); AST (SGOT) 18 U/L (10-42); BILIRUBIN,TOTAL 0.8 mg/dL (0.2-2.0); CALCIUM SERUM 8.5 mg/dL (8.4-10.2); CARBON DIOXIDE 26 mmol/L (22-31); CHLORIDE 101 mmol/L (100-111); CK TOTAL 58 IU/L (26-140); CREATININE SERUM 0.7 mg/dL (0.6-1.4); GLOM FILT RATE Estimated 96.2 mL/min (>60); GLUCOSE FASTING 160 mg/dL (70-110); POTASSIUM 3.4 mmol/L (3.5-5.1); PROTEIN TOTAL SERUM 6.1 g/dL (6.0-8.3); SODIUM 136 mmol/L (135-145)
[2016-11-15 12:18] LABS: BLOOD UREA NITROGEN <5 mg/dL (9-23); BUN/CREATININE RATIO 7.14
[2016-11-15 18:58] LABS: CK TOTAL 42 IU/L (26-140)
[2016-11-16] MEDS ORDERED: ABILIFY10 MG PO (07:43)
[2016-11-16] MEDS ORDERED: BENTYL10 MG PO (07:44)
[2016-11-16] MEDS ORDERED: AMITRIPTYLINE H50 MG PO (07:44)
[2016-11-16] MEDS ORDERED: KLONOPIN1 MG PO ×2 (07:45)
[2016-11-16] MEDS ORDERED: PROTONIX PO (07:46)
[2016-11-16] MEDS ORDERED: LEXAPRO20 MG PO (07:46)
[2016-11-16] MEDS ORDERED: METHADONE HCL10 MG PO (07:47)
[2016-11-16] MEDS ORDERED: FOSAMAX70 MG PO (07:48)
[2016-11-16] MEDS ORDERED: COREG3.125 MG PO (07:48)
[2016-11-16] MEDS ORDERED: LASIX20 MG PO (07:49)
[2016-11-16] MEDS ORDERED: OXYCODONE HCL30 MG PO (07:49)
[2016-11-16] MEDS ORDERED: VITAMIN D50000 UNIT PO (07:50)
[2016-11-16 07:52] LABS: HEMATOCRIT 42.4 % (35.0-45.0); HEMOGLOBIN 13.7 gm/dL (12.0-16.0); MEAN CORPUSCULAR HEMOGLOBIN 28.1 PG (28-34); MEAN CORPUSCULAR HGB CONC 32.3 g/dL (30-36); MEAN PLATELET VOLUME 9.8 FL (6.5-11.5); RED BLOOD COUNT 4.88 X10e (3.90-5.30); RED CELL DISTRIBUTION WIDTH 14.9 % (11.0-15.5); WHITE BLOOD COUNT 17.9 X10e3 (4.0-10.5)
[2016-11-16] MEDS ORDERED: LIDODERM30 EA TOP (07:52)
[2016-11-16] MEDS ORDERED: K-DUR20 ME1 PO (07:52)
[2016-11-16] MEDS ORDERED: ATORVASTATIN CA20 MG PO (07:53)
[2016-11-16] MEDS ORDERED: LEVOTHYROXINE25 MC1 PO (08:13)
[2016-11-16] MEDS ORDERED: TIZANIDINE HCL4 M1 PO (08:14)
[2016-11-16 08:20] LABS: CALCIUM SERUM 8.7 mg/dL (8.4-10.2); CREATININE SERUM 0.6 mg/dL (0.6-1.4); GLOM FILT RATE Estimated 101.2 mL/min (>60); POTASSIUM 3.9 mmol/L (3.5-5.1)
[2016-11-17 06:57] LABS: HEMATOCRIT 31.6 % (35.0-45.0); MEAN CELL VOLUME 86.2 FL (83-96); MEAN CORPUSCULAR HEMOGLOBIN 28.8 PG (28-34); MEAN CORPUSCULAR HGB CONC 33.4 g/dL (30-36); MEAN PLATELET VOLUME 9.3 FL (6.5-11.5); RED BLOOD COUNT 3.67 X10e (3.90-5.30); WHITE BLOOD COUNT 10.3 X10e3 (4.0-10.5)
[2016-11-17 07:03] LABS: HEMOGLOBIN 10.6 gm/dL (12.0-16.0)
[2016-11-17 07:29] LABS: CALCIUM SERUM 7.6 mg/dL (8.4-10.2); CARBON DIOXIDE 25 mmol/L (22-31); CHLORIDE 100 mmol/L (100-111); CREATININE SERUM 0.6 mg/dL (0.6-1.4); GLOM FILT RATE Estimated 101.2 mL/min (>60); GLUCOSE FASTING 108 mg/dL (70-110); MAGNESIUM 1.5 mg/dL (1.6-3.0); POTASSIUM 3.3 mmol/L (3.5-5.1); SODIUM 131 mmol/L (135-145)
[2016-11-17 07:31] LABS: BLOOD UREA NITROGEN <5 mg/dL (9-23); BUN/CREATININE RATIO 8.33
[2016-11-18 07:12] LABS: HEMATOCRIT 30.2 % (35.0-45.0); HEMOGLOBIN 10.1 gm/dL (12.0-16.0); MEAN CELL VOLUME 86.2 FL (83-96); MEAN CORPUSCULAR HEMOGLOBIN 28.9 PG (28-34); MEAN CORPUSCULAR HGB CONC 33.5 g/dL (30-36); MEAN PLATELET VOLUME 9.4 FL (6.5-11.5); RED BLOOD COUNT 3.51 X10e (3.90-5.30); RED CELL DISTRIBUTION WIDTH 15.3 % (11.0-15.5); WHITE BLOOD COUNT 9.2 X10e3 (4.0-10.5)
[2016-11-19 06:55] LABS: HEMATOCRIT 33.3 % (35.0-45.0); MEAN CELL VOLUME 86.5 FL (83-96); MEAN CORPUSCULAR HEMOGLOBIN 28.5 PG (28-34); MEAN PLATELET VOLUME 9.9 FL (6.5-11.5); RED BLOOD COUNT 3.85 X10e (3.90-5.30); RED CELL DISTRIBUTION WIDTH 15.3 % (11.0-15.5); WHITE BLOOD COUNT 7.4 X10e3 (4.0-10.5)
[2016-11-19 07:35] LABS: CALCIUM SERUM 7.9 mg/dL (8.4-10.2); CARBON DIOXIDE 26 mmol/L (22-31); CHLORIDE 103 mmol/L (100-111); CREATININE SERUM 0.6 mg/dL (0.6-1.4); GLOM FILT RATE Estimated 101.2 mL/min (>60); GLUCOSE FASTING 94 mg/dL (70-110); MAGNESIUM 1.9 mg/dL (1.6-3.0); POTASSIUM 3.6 mmol/L (3.5-5.1); SODIUM 132 mmol/L (135-145)
[2016-11-19 07:41] LABS: BLOOD UREA NITROGEN <5 mg/dL (9-23); BUN/CREATININE RATIO 8.33
== END 2016-11-20 12:10 | disposition home or self-care (01) | DRG 389 ==
LOC: CED 13:57 → CEDOF 18:32 → C2A 11-14 08:12 → C3A PCU 11-15 13:14
PROVIDERS: Emergency Medicine; Family Medicine; Nurse Practitioner; Surgery
DX: K56.5 Intestinal adhesions [bands] with obstruction (postinfection) (principal); M80.88XA Other osteoporosis with current pathological fracture, vertebra(e), initial encounter for fracture; F32.9 Major depressive disorder, single episode, unspecified; K21.9 Gastro-esophageal reflux disease without esophagitis; E03.9 Hypothyroidism, unspecified; Z90.49 Acquired absence of other specified parts of digestive tract; Z98.49 Cataract extraction status, unspecified eye; Z90.710 Acquired absence of both cervix and uterus; Z88.8 Allergy status to other drugs, medicaments and biological substances; F17.210 Nicotine dependence, cigarettes, uncomplicated; F41.9 Anxiety disorder, unspecified; R73.9 Hyperglycemia, unspecified; D64.9 Anemia, unspecified
CPT/HCPCS: 36415; 36600; 71010; 71020; 72148; 74000; 74020; 74177; 74245; 80048; 80053; 80076; 81003; 82150; 82550; 82607; 82803; 82947; 83036; 83605; 83690; 83735; 84132; 84443; 84484; 85025; 85027; 93005; 94760; 96361; 96374; 96375; 99285; C9113; J1170; J1940; J1956; J2060; J2405; J3475; Q9967

== ENCOUNTER 2016-12-22 21:22 | Emergency (ER) | payer MEDICARE ==
[2016-12-22 21:16] LABS: BASOPHIL% 0.7 % (0-2.5); EOSINOPHIL# 0.2 X10e3 (0-0.7); EOSINOPHIL% 2.4 % (0.0-7.0); HEMATOCRIT 31.6 % (35.0-45.0); HEMOGLOBIN 10.4 gm/dL (12.0-16.0); LYMPHOCYTE# 1.6 X10e3 (1.0-3.5); LYMPHOCYTE% 26.2 % (17.0-45.0); MEAN CORPUSCULAR HEMOGLOBIN 28.1 PG (28-34); MEAN PLATELET VOLUME 8.9 FL (6.5-11.5); MONOCYTE# 0.9 X10e3 (0-1.0); MONOCYTE% 14.1 % (3.0-12.0); NEUTROPHIL# 3.5 X10e3 (1.5-7.1); NEUTROPHIL% 56.6 % (40-75); PLATELET COUNT 193 X10e3 (140-420); RED BLOOD COUNT 3.72 X10e (3.90-5.30); WHITE BLOOD COUNT 6.2 X10e3 (4.0-10.5)
[2016-12-22 21:18] LABS: DIFF IND NO
[~2016-12-22 21:22] MED LIST changes: +ATORVASTATIN CA20 MG PO; +FOSAMAX70 MG PO; +K-DUR20 ME1 PO; +LEVOTHYROXINE25 MC1 PO; +LIDODERM30 EA TOP; +METHADONE HCL10 MG PO; +TIZANIDINE HCL4 M1 PO
[2016-12-22 21:38] LABS: ALBUMIN SERUM 3.1 g/dL (3.5-5.0); BILIRUBIN, DIRECT 0.1 mg/dL (0.0-0.2); BILIRUBIN,INDIRECT 0.4 mg/dL (0.0-0.9); BILIRUBIN,TOTAL 0.5 mg/dL (0.2-2.0); CALCIUM SERUM 8.5 mg/dL (8.4-10.2); CREATININE SERUM 0.6 mg/dL (0.6-1.4); GLOM FILT RATE Estimated 101.2 mL/min (>60); PROTEIN TOTAL SERUM 6.6 g/dL (6.0-8.3)
[2016-12-22 21:43] LABS: POTASSIUM 2.7 mmol/L (3.5-5.1)
[2016-12-22 21:49] LABS: URINE SOURCE CLEAN CATCH
[2016-12-22 22:02] LABS: URINE APPEARANCE CLOUDY; URINE BILIRUBIN NEG (NEG); URINE BLOOD 1+ (NEG); URINE COLOR YELLOW; URINE GLUCOSE NEG (NEG); URINE KETONE NEG (NEG); URINE LEUKOCYTE ESTERASE TRACE (NEG); URINE NITRATE NEG (NEG); URINE PH 6.5 (5-8); URINE PROTEIN NEG (NEG); URINE UROBILINOGEN 0.2 MG/DL (NEG)
[2016-12-22 22:05] LABS: CULTURE INDICATED? YES; URBCS1 AUWI 25-50 /[HPF] (0-2); URINE BACTERIA AUWI 2+ (NEGATIVE); URINE SQUAMOUS EPITHELIAL CELL MOD /[HPF]
[2016-12-22 22:13] LABS: AMPHETAMINE POS (NEG); BARBITURATES NEG (NEG); BENZODIAZEPINES POS (NEG); COCAINE NEG (NEG); MARIJUANA NEG (NEG); OPIATES NEG (NEG); TRICYCLIC ANTIDEPRESSANTS POS (NEG); U METHADONE POS (NEG)
== END 2016-12-22 22:55 | disposition home or self-care (01) ==
LOC: CFTX 21:22
PROVIDERS: Physician Assistant
DX: L98.9 Disorder of the skin and subcutaneous tissue, unspecified (principal); N39.0 Urinary tract infection, site not specified; F15.10 Other stimulant abuse, uncomplicated; E78.5 Hyperlipidemia, unspecified; F32.9 Major depressive disorder, single episode, unspecified; F17.210 Nicotine dependence, cigarettes, uncomplicated; Z90.49 Acquired absence of other specified parts of digestive tract; Z88.5 Allergy status to narcotic agent; Z88.8 Allergy status to other drugs, medicaments and biological substances; Z79.899 Other long term (current) drug therapy
CPT/HCPCS: 80048; 80076; 80307; 81003; 83880; 85025; 87086; 99283